=== PATIENT | female | born 1955 | race Caucasian/White ===

== ENCOUNTER 2018-11-11 13:50 | Emergency (ER) | payer MEDICAID, MEDICARE ==
--- NOTE | 2018-11-11 14:51 | EDM.PDOC ---
ED HPI GENERAL MEDICAL PROBLEM - General Chief Complaint: Skin Complaint Stated Complaint: INFECTED BELLY BUTTON RING Time Seen by Provider: 11/11/18 14:20 Source of Information: Reports: Patient History Limitations: Reports: No Limitations - History of Present Illness INITIAL COMMENTS - FREE TEXT/NARRATIVE: 63-year-old female presents for evaluation and treatment an infection to her bellybutton ring. Patient reports that she had her bellybutton pierced about 2 months ago. She was on antibiotics from her doctor in [place] but does not recall what this was. She states that she followed up with them as she is not getting any better and she was now placed on Keflex 500 mg twice a day yesterday. She is on taken 3 doses thus far. She states that she is nauseated, fevers and chills but has not taken her temperature. No vomiting. Reports pain surrounding the bellybutton. She's not appreciated any drainage from the bellybutton. She still has a ring in place. 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 Abdominal Pain Score (Numeric/FACES): 9 - Related Data Allergies Allergy/AdvReac Type Severity Reaction Status Date / Time celecoxib [From Celebrex] Allergy Other Verified 11/11/18 14:17 Home Meds: Home Meds Doxycycline [Vibramycin] 100 mg PO BID #20 cap 11/11/18 [Rx] FLUoxetine [PROzac] 10 mg PO DAILY 11/11/18 [History] Hydrocodone/Acetaminophen [Hydrocodon-Acetaminophen 5-325] 1 tab PO QID [History] Methocarbamol 750 mg PO QID 11/11/18 [History] Simvastatin 5 mg PO DAILY 11/11/18 [History] Past Medical History Cardiovascular History: Reports: High Cholesterol [employer] History: Reports: Other (See Below) Other [employer] History: partial hysterectomy; breast surgery-benign tumors - Past Surgical History HEENT Surgical History: Reports: Eye Surgery, Naso-Sinus Surgery GI Surgical History: Reports: Cholecystectomy, Other (See Below) Other GI Surgeries/Procedures: "tummy tuck" in may Female Surgical History: Reports: Hysterectomy Musculoskeletal Surgical History: Reports: Other (See Below) Other Musculoskeletal Surgeries/Procedures:: left arm surgery; left ankle surgery Social & Family History - Tobacco Use Smoking Status *Q: Former Smoker Used Tobacco, but Quit: Yes Month/Year Tobacco Last Used: at age 40 - Caffeine Use Caffeine Use: Reports: None - Recreational Drug Use Recreational Drug Use: No ED ROS GENERAL - Review of Systems Review Of Systems: See Below Constitutional: Reports: Fever, Chills GI/Abdominal: Reports: Nausea, Vomiting Skin: Reports: Other (reports pain around the navel ) ED EXAM, SKIN/RASH Exam: See Below Exam Limited By: No Limitations General Appearance: Alert, WD/WN, No Apparent Distress Respiratory/Chest: No Respiratory Distress Neurological: Alert, Oriented, Normal Cognition Psychiatric: Normal Affect, Normal Mood Skin: Warm, Dry, Normal Color, Wound/Incision (tissue over the cresent shaped ring is erythematous and nacrotic; no surrounding erythema, no prurlent material from the ring) Location, Skin: Abdomen Characteristics: Necrotic (tissue overlying the cresent shapped ring, no surrounding necrotic tissue no surrounding erythema) Course - Vital Signs Last Recorded V/S: Last Vital Signs Temp 98.2 F 11/11/18 14:09 Pulse 79 11/11/18 14:09 Resp 18 11/11/18 14:09 BP 155/82 H 11/11/18 14:09 Pulse Ox 97 11/11/18 14:09 - Orders/Labs/Meds Orders: Active Orders 24 hr Category Date Time Status CULTURE WOUND [RM] Stat Lab 11/11/18 14:45 Received - Re-Assessments/Exams Free Text/Narrative Re-Assessment/Exam: 11/11/18 14:39 Culture of area obtained. Will notify if change of antibiotics is needed. Navel ring removed. Will switch to doxycycline due to history of MRSA infection. Will discharge home at this time. Discharge instructions as documented. Departure - Departure Time of Disposition: 14:47 Disposition: Home, Self-Care 01 Condition: Good Clinical Impression: Infected pierced belly button - Discharge Information *PRESCRIPTION DRUG MONITORING PROGRAM REVIEWED*: No *COPY OF PRESCRIPTION DRUG MONITORING REPORT IN PATIENT RAD: No Prescriptions: Doxycycline [Vibramycin] 100 mg PO BID #20 cap Referrals: PCP,None [Primary Care Provider] - Katrina Ely PA-C [Physician Controlled Area Checker] - Forms: ED Department Discharge Additional Instructions: Stop the Keflex. Take the doxycycline 1 cap Twice a day for 10 days. This medication may cause photosensitivity. Recommend avoiding sunlight and if you are in the sun use sunscreen. [id number] Tylenol or Motrin as needed for pain relief. If you continue to have symptoms beyond 10 days follow-up with family medicine. Here in [place] recommend Katrina Ely or Tressa Brasher. Call [phone] to schedule these providers. Do not put a new ring in your naval. Wash the area with either an over-the- counter solution or hydrogen peroxide twice a day. A culture of the area was taken. This normally takes 2 days to get these results back. We will notify you of any change of antibiotics is needed. If you do not hear from us assume you are on the correct antibiotics. Please return to the ER for symptoms change or worsen. - My Orders Last 24 Hours: My Active Orders 11/11/18 14:45 CULTURE WOUND [RM] Stat - Assessment/Plan Last 24 Hours: My Active Orders 11/11/18 14:45 CULTURE WOUND [RM] Stat
== END 2018-11-11 15:00 | disposition home or self-care (01) ==
LOC: JD.ED 13:50
DX: L08.9 Local infection of the skin and subcutaneous tissue, unspecified (principal); Z87.891 Personal history of nicotine dependence; Z88.1 Allergy status to other antibiotic agents; Z79.899 Other long term (current) drug therapy
CPT/HCPCS: 87070; 87077; 87186; 99283